=== PATIENT | male | born 1950 | race Two or more races ===

== ENCOUNTER → 2020-10-19 06:00 | Outpatient (CLI) | payer OTHER ==
[~2020-10-19 06:00] MED LIST: GLIMEPIRIDE4 MG; JANUVIA50 MG PO; LANTUS SOL100 UNIT/1
== END | disposition home or self-care (01) ==
LOC: LAB 06:00 → ADM 07:00 → CIR.AMB 10-26 07:00 → EDSTATUS 11-10 07:00 → CIR.AMB 11-10 07:00
PROVIDERS: ATTEND Surgery
DX: N52.8 Other male erectile dysfunction (principal); Z20.822 Contact with and (suspected) exposure to COVID-19; Z01.810 Encounter for preprocedural cardiovascular examination; B95.1 Streptococcus, group B, as the cause of diseases classified elsewhere; B96.89 Other specified bacterial agents as the cause of diseases classified elsewhere; I10 Essential (primary) hypertension

== ENCOUNTER 2020-12-28 05:45 | Day surgery (SDC) | payer OTHER ==
[~2020-12-28 05:45] MED LIST changes: +ATORVASTATIN CA40 MG PO; +ENALAPRIL MALE2.5 MG PO; +GABAPEN PO; +GLIMEPIRIDE4 M1 PO; +LANTUS; +TAMS0.4C PO
[2020-12-28] MEDS ORDERED: PERCOCET 5-3251 EACH PO (14:33)
== END 2020-12-28 14:50 | disposition home or self-care (01) ==
LOC: CIR.AMB 05:45
PROVIDERS: ATTEND Surgery
DX: T83.61XS Infection and inflammatory reaction due to implanted penile prosthesis, sequela (principal); Z20.822 Contact with and (suspected) exposure to COVID-19
CPT/HCPCS: 54405; C1813